=== PATIENT | female | born 1985 | race American Indian/Alaskan Native ===

== ENCOUNTER 2017-08-23 11:53 | Day surgery (SDC) | payer BC, MEDICAID ==
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
[2017-08-23] MEDS ORDERED: LACTATED RINGERS 1,000 ML IV SCH ×2 (13:00→15:00)
[2017-08-23] MEDS ORDERED: ANCEF/STERILE WATER 2 GM/20 ML 2 GM/20 ML SYRINGE IV NR (13:00)
[2017-08-23 13:17] LABS: Basophils % (Auto) 0.3 % (0.0-1.8); Eosinophils # (Auto) 0.1 K/mm3 (0.0-0.4); Eosinophils % (Auto) 0.6 % (0.0-4.3); Hematocrit 35.9 % (30.3-42.9); Hemoglobin 11.7 gm/dl (10.1-14.3); Lymphocytes # (Auto) 1.7 K/mm3 (1.2-5.4); Lymphocytes % (Auto) 20.7 % (13.4-35.0); Mean Corpuscular HGB Conc 33 % (30-34); Mean Corpuscular Hemoglobin 28 pg (28-32); Mean Corpuscular Volume 86 fl (79-97); Monocytes # (Auto) 0.7 K/mm3 (0.0-0.8); Monocytes % (Auto) 8.3 % (0.0-7.3); Platelet Count 348 K/mm3 (140-440); Red Blood Count 4.17 M/mm3 (3.65-5.03); Red Cell Distribution Width 12.6 % (13.2-15.2)
--- NOTE | 2017-08-23 13:18 | Anesthesia Consultation ---
Anesthesia Consult and Med Hx Date of service: 08/23/17 - Airway Anesthetic Teeth Evaluation: Good ROM Head & Neck: Adequate Mental/Hyoid Distance: Adequate Mallampati Class: Class II Intubation Access Assessment: Good - Pulmonary Exam CTA: Yes - Cardiac Exam Cardiac Exam: No Murmur - Pre-Operative Health Status ASA Pre-Surgery Classification: ASA1 Proposed Anesthetic Plan: General
--- NOTE | 2017-08-23 13:41 | Anesthesia Day of Surgery ---
Anesthesia Day of Surgery - Day of Surgery Patient Examined: Yes Patient H&P Reviewed: Yes Patient is NPO: Yes
[2017-08-23] MEDS ORDERED: XYLOCAINE MPF 2% ONE (13:49)
[2017-08-23] MEDS ORDERED: DIPRIVAN 10 MG/ML IV ONE (13:49)
[2017-08-23] MEDS ORDERED: SUBLIMAZE ONE (13:55)
[2017-08-23] MEDS ORDERED: VERSED IV NR (14:00)
[2017-08-23] MEDS ORDERED: PEPCID PO NR (14:00)
[2017-08-23] MEDS ORDERED: NACL 0.9% IR ONE (14:05)
[2017-08-23] MEDS ORDERED: ZOFRAN ONE (14:12)
--- NOTE | 2017-08-23 14:27 | Operative Report ---
Operative Report Operative Report: PREOPERATIVE DIAGNOSIS: 1. Blighted ovum 2. Missed POSTOPERATIVE DIAGNOSIS: Same OPERATIVE PROCEDURE: Dilatation and curettage. SURGEON: Sanjiv Robertson MD ANESTHESIA: Gen. Dill ANESTHESIOLOGIST: Dr. Pollock ESTIMATED BLOOD LOSS: 200 mL's FINDINGS: An 8-10 week size uterus with moderate amounts of products of conception COMPLICATIONS: None COUNTS: Correct x3. PROCEDURE: After the patient was correctly identified, and after general anesthesia was administered, the patient was prepped and draped in the usual sterile fashion and placed in dorsal lithotomy position. First, the bladder was emptied using a straight catheter. Next, a speculum was placed in the vaginal vault and the anterior lip of the cervix was grasped using a single- tooth tenaculum. The uterus was sounded to 10 cm. The cervical os was sequentially dilated, and an 9 mm vaccurette was used to suction blood and products of conception from the uterine cavity. After all the products of conception were removed, the procedure was considered complete. All instruments were removed from the vagina. The patient tolerated the procedure well and was transferred to the recovery room in stable condition.
[2017-08-23] MEDS ORDERED: SUBLIMAZE IV PRN (14:31)
[2017-08-23] MEDS ORDERED: ZOFRAN IV PRN (14:31)
[2017-08-23] MEDS ORDERED: TORADOL IV NR (14:40)
--- NOTE | 2017-08-23 14:54 | Post Anesthesia Evaluation ---
- Post Anesthesia Evaluation Patient Participated: Yes Airway Patent: Yes Stable Respiratory Function: Yes Nausea/Vomiting: No Temp > 96.8F: Yes Pain Manageable: Yes Adequeate Hydration: Yes Anesthesia Complications: No Block Receding Appropriately: Not Applicable Patient on Ventilator: No
[2017-08-23 15:09] VITALS: BP 107/72
[2017-08-23] MEDS ORDERED: PERCOCET 5/325 PO ONE (15:19)
== END 2017-08-23 15:57 | disposition home or self-care (01) ==
LOC: OR 11:53
PROVIDERS: ATTEND Obstetrics & Gynecology
DX: O02.1 Missed abortion (principal)
CPT/HCPCS: 36415; 59820; 85025; 86900; 86901; 88305; J0690; J1885; J2250; J2405; J2704; J3010; J7120

== ENCOUNTER 2020-02-10 15:46 | Emergency (ER) | payer OTHER, MEDICAID ==
[2020-02-10] MEDS ORDERED: ACETAMINOPHEN 500 MG TAB PO ONE (19:23)
[2020-02-10 19:46] LABS: Bilirubin,Urine NEG (Negative); Blood,Urine NEG (Negative); Color,Urine Yellow (Yellow); HCG Qualitative,Urine Negative (Negative); Mucus,Urine FEW /HPF; Protein,Urine <15 mg/dL mg/dL (Negative); Urobilinogen,Urine < 2.0 mg/dL (<2.0)
[2020-02-10] MEDS ORDERED: KETOROLAC 30 MG/1 ML INJ IM ONE (20:19)
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
[2020-02-10 21:28] VITALS: BP 127/86
== END 2020-02-10 21:28 | disposition home or self-care (01) ==
LOC: ED 15:46
DX: M54.5 Low back pain (principal); M62.830 Muscle spasm of back; Z98.890 Other specified postprocedural states; Z79.1 Long term (current) use of non-steroidal anti-inflammatories (NSAID); Z79.899 Other long term (current) drug therapy; V49.49XA Driver injured in collision with other motor vehicles in traffic accident, initial encounter; Y93.89 Activity, other specified; Y92.410 Unspecified street and highway as the place of occurrence of the external cause; Y99.8 Other external cause status
CPT/HCPCS: 72100; 81001; 81025; 96372; 99283; J1885

== ENCOUNTER 2020-11-02 13:29 | Emergency (ER) | payer MEDICAID, OTHER ==
[2020-11-02 13:53] VITALS: BP 165/88
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
[2020-11-02 16:04] LABS: HCG Qualitative,Urine Positive (Negative)
--- NOTE | 2020-11-02 16:24 | Cat Scan Report ---
CT HEAD WITHOUT CONTRAST INDICATION / CLINICAL INFORMATION: Head injury with headache and dizziness x1 week. TECHNIQUE: All CT scans at this location are performed using CT dose reduction for ALARA by means of automated exposure control. COMPARISON: 10/08/2012 FINDINGS: HEMORRHAGE: None. EXTRA-AXIAL SPACES: Normal in size and morphology for the patient's age. VENTRICULAR SYSTEM: Normal in size and morphology for the patient's age. CEREBRAL PARENCHYMA: No significant abnormality. No acute territorial infarct. MIDLINE SHIFT / HERNIATION: None. CEREBELLUM / BRAINSTEM: No significant abnormality. ORBITS: Normal as visualized. SOFT TISSUES: There is a hematoma in the right frontal scalp. SKULL: No significant abnormality. PARANASAL SINUSES / MASTOID AIR CELLS: Normal as visualized. ADDITIONAL FINDINGS: None. IMPRESSION: 1. No acute intracranial abnormality. Signer Name: Georgi Willoughby MD Signed: 11/02/2020 4:20 PM Workstation Name: [id number]
--- NOTE | 2020-11-06 14:21 | Electrocardiograph Report ---
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
== END 2020-11-02 17:06 | disposition home or self-care (01) ==
LOC: ED 13:29
DX: S09.90XA Unspecified injury of head, initial encounter (principal); S00.03XA Contusion of scalp, initial encounter; Z98.890 Other specified postprocedural states; W18.30XA Fall on same level, unspecified, initial encounter; Y93.89 Activity, other specified; Y92.89 Other specified places as the place of occurrence of the external cause; Y99.8 Other external cause status
CPT/HCPCS: 70450; 81025; 93005

== ENCOUNTER 2020-11-13 16:46 | Emergency (ER) | payer OTHER ==
[2020-11-13 18:20] VITALS: BP 148/79
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
--- NOTE | 2020-11-13 20:15 | Emergency Department Report ---
ED Lower Extremity HPI - General Chief Complaint: Extremity Injury, Lower Stated Complaint: LEFT ANKLE PAIN. PT FELL Time Seen by Provider: 11/13/20 18:21 Source: patient Mode of arrival: Ambulatory Limitations: No Limitations - History of Present Illness Initial Comments: This is a 35-year-old female nontoxic, well nourished in appearance, no acute signs of distress presents to the ED with c/o of left ankle and foot pain 1 day. Patient stated that she had a trip and fall to the foot/ankle area. Patient denies any other injuries or trauma. Patient denies any numbness, tingling, fever, chills, nausea, vomiting, chest pain, shortness of breath, headache, stiff neck. Patient denies any joint swelling or joint redness. Patient denies decreased range of motion. Patient stated has decreased gait due to pain. Patient denies any allergies or significant past medical history. MD Complaint: ankle injury -: days(s) Injury: Ankle: Left, Foot: Left Place: street/outdoors Severity: mild Severity scale (0 -10): 8 Improves With: immobilization Worsens With: weight bearing, movement, palpation Context: fall Associated Symptoms: swelling, able to partially bear weight. denies: snap/pop sensation, numbness, tingling, unable to bear weight - Related Data Previous Rx's Medication Instructions Recorded Last Taken Type Doxycycline Hyclate [Doxycycline 100 mg PO Q12HR #14 tab 08/23/17 Unknown Rx Hyclate TAB] Methylergonovine [Methergine] 0.2 mg PO Q8HR #6 tablet 08/23/17 Unknown Rx Ibuprofen [Motrin 800 MG tab] 800 mg PO Q8HR PRN #30 tablet 02/10/20 Unknown Rx Naproxen 500 mg PO Q12H PRN #12 tablet 11/13/20 Unknown Rx Allergies Allergy/AdvReac Type Severity Reaction Status Date / Time No Known Allergies Allergy Verified 04/30/16 14:24 ED Review of Systems ROS: Stated complaint: LEFT ANKLE PAIN. PT FELL Other details as noted in HPI Comment: All other systems reviewed and negative Constitutional: denies: chills, fever Eyes: denies: eye pain, eye discharge, vision change ENT: denies: ear pain, throat pain Respiratory: denies: cough, shortness of breath, wheezing Cardiovascular: denies: chest pain, palpitations Endocrine: no symptoms reported Gastrointestinal: denies: abdominal pain, nausea, diarrhea Genitourinary: denies: urgency, dysuria, discharge Musculoskeletal: denies: back pain, joint swelling, arthralgia Skin: denies: rash, lesions Neurological: denies: headache, weakness, paresthesias Psychiatric: denies: anxiety, depression Hematological/Lymphatic: denies: easy bleeding, easy bruising ED Past Medical Hx - Past Medical History Previous Medical History?: No - Surgical History Past Surgical History?: Yes Additional Surgical History: hernia repair, x 4 - Social History Smoking Status: Never Smoker - Medications Home Medications: Home Medications Medication Instructions Recorded Confirmed Last Taken Type Doxycycline Hyclate [Doxycycline 100 mg PO Q12HR #14 tab 08/23/17 Unknown Rx Hyclate TAB] Methylergonovine [Methergine] 0.2 mg PO Q8HR #6 tablet 08/23/17 Unknown Rx Ibuprofen [Motrin 800 MG tab] 800 mg PO Q8HR PRN #30 tablet 02/10/20 Unknown Rx Naproxen 500 mg PO Q12H PRN #12 tablet 11/13/20 Unknown Rx ED Physical Exam - General Limitations: No Limitations General appearance: alert, in no apparent distress - Head Head exam: Present: atraumatic, normocephalic - Eye Eye exam: Present: normal appearance - Neck Neck exam: Present: normal inspection, full ROM. Absent: lymphadenopathy - Respiratory Respiratory exam: Absent: respiratory distress - Cardiovascular Cardiovascular Exam: Present: regular rate - Extremities Exam Extremities exam: Present: normal inspection, full ROM, tenderness, normal capillary refill. Absent: pedal edema, joint swelling, calf tenderness - Expanded Lower Extremity Exam Left Hip exam: Present: normal inspection, full ROM. Absent: tenderness, swelling Upper Leg exam: Present: normal inspection, full ROM. Absent: tenderness, swelling Knee exam: Present: normal inspection, full ROM. Absent: tenderness, swelling Lower Leg exam: Present: normal inspection, full ROM. Absent: tenderness, swelling Ankle exam: Present: normal inspection, full ROM, tenderness, swelling. Absent: abrasion, laceration, deformity, crepidus, dislocation, erythema Foot/Toe exam: Present: normal inspection, full ROM, tenderness. Absent: swelling, abrasion, laceration, ecchymosis, deformity, crepidus, dislocation, erythema, amputation, puncture wound, foreign body, calcaneal tenderness, tenderness at base of 5th metatarsal, nail avulsion, subungual hematoma Neuro vascular tendon exam: Present: no vascular compromise Gait: Positive: observed and limited by pain 1 - pain here and swelling 1 - pain here - Back Exam Back exam: Present: normal inspection, full ROM. Absent: tenderness, CVA tenderness (R), CVA tenderness (L), muscle spasm, paraspinal tenderness, vertebral tenderness, rash noted - Neurological Exam Neurological exam: Present: alert, oriented X3 - Psychiatric Psychiatric exam: Present: normal affect, normal mood - Skin Skin exam: Present: warm, dry, intact, normal color. Absent: rash - Other Other exam information: Negative Del Rosario test to left side. ED Course Vital Signs 11/13/20 18:17 Temperature 99.3 F Pulse Rate 81 Respiratory 18 Rate Blood Pressure 148/79 [Right] O2 Sat by Pulse 99 Oximetry - Reevaluation(s) Reevaluation #1: 11/13/20 20:15 Patient is speaking in full sentences with no signs of distress noted. ED Lower Extremity MDM - Radiology Data [facility] [address] [place] [address] XRay Report Signed Patient: NANCY ROJAS MR#: [id number] : 1985 Acct:[id number] Age/Sex: 35 / F ADM Date: 11/13/20 Loc: ED Attending Dr: Ordering Physician: LACHO CHEW NP Date of Service: 11/13/20 Procedure(s): XR foot 3+V LT Accession Number(s): [id number] cc: LACHO CHEW NP Fluoro Time In Minutes: EXAMINATION: Left foot radiograph, 3 views, 11/13/2020 CLINICAL INFORMATION: Left ankle pain after trauma. COMPARISON: None. FINDINGS: There is no evidence of acute fracture of the left foot. No focal soft tissue swelling is identified. No significant bony degenerative changes are noted. Signer Name: Isabella Dempsey MD Signed: 11/13/2020 7:28 PM Workstation Name: [id number] Transcribed By: NARINDER Dictated By: Isabella Dempsey MD Electronically Authenticated By: Isabella Dempsey MD Signed Date/Time: 11/13/201927 DD/ 26 TD/TT: [facility] [address] [place] [address] XRay Report Signed Patient: NANCY ROJAS MR#: [id number] : 1985 Acct:[id number] Age/Sex: 35 / F ADM Date: 11/13/20 Loc: ED Attending Dr: Ordering Physician: LACHO CHEW NP Date of Service: 11/13/20 Procedure(s): XR ankle 3+V LT Accession Number(s): [id number] cc: LACHO CHEW NP Fluoro Time In Minutes: EXAMINATION: Left ankle radiograph, 3 views, 11/13/2020 CLINICAL INFORMATION: Left ankle pain after trauma. Fall. COMPARISON: None. FINDINGS: There is no evidence of acute fracture or dislocation of the left ankle. No focal soft tissue swelling is visualized. Signer Name: Isabella Dempsey MD Signed: 11/13/2020 7:27 PM Workstation Name: [id number] Transcribed By: NARINDER Dictated By: Isabella Dempsey MD Electronically Authenticated By: Isabella Dempsey MD Signed Date/Time: 11/13/201926 DD/ 25 TD/TT: - Medical Decision Making This is a 35-year-old female that presents with left ankle and foot strain. Patient is stable and was examined by me. I referred patient to an orthopedic doctor for further evaluation for possible MRI. X-ray has been obtained and dictated by the radiologist. Patient is notified of the x-ray report with noted by the patient. Patient received ankle stirrup. Patient does have crutches present which she came in with. Patient was instructed to RICE therapy. P patient discharged with naproxen. At time of discharge, the patient does not seem toxic or ill in appearance. No acute signs of distress noted. Patient agrees to discharge treatment plan of care. No further questions noted by the patient. Critical care attestation.: If time is entered above; I have spent that time in minutes in the direct care of this critically ill patient, excluding procedure time. ED Disposition Clinical Impression: Left ankle sprain Qualifiers: Encounter type: initial encounter Involved ligament of ankle: unspecified ligament Qualified Code(s): S93.402A - Sprain of unspecified ligament of left ankle, initial encounter Strain of foot, left Qualifiers: Encounter type: initial encounter Qualified Code(s): S96.912A - Strain of unspecified muscle and tendon at ankle and foot level, left foot, initial encounter Fall Qualifiers: Encounter type: initial encounter Qualified Code(s): W19.XXXA - Unspecified fall, initial encounter Disposition: TO HOME OR SELFCARE Is pt being admited?: No Does the pt Need Aspirin: No Condition: Stable Instructions: RICE Therapy for Routine Care of Injuries, [id number] Additional Instructions: Follow-up with a orthopedic doctor in 3-5 days or if symptoms worsen and continue return to emergency room as soon as possible. No physical activity that extremity until cleared by orthopedic doctor Prescriptions: Naproxen 500 mg PO Q12H PRN #12 tablet PRN Reason: Pain , Severe (7-10) Referrals: PRIMARY CARE, [Referring] - 3-5 Days DANI GENTILE MD [Staff Physician] - 3-5 Days Forms: Work/School Release Form(ED) Time of Disposition: 20:18
== END 2020-11-13 21:20 | disposition home or self-care (01) ==
LOC: ED 16:46
DX: S93.402A Sprain of unspecified ligament of left ankle, initial encounter (principal); S96.912A Strain of unspecified muscle and tendon at ankle and foot level, left foot, initial encounter; Z98.890 Other specified postprocedural states; Z79.899 Other long term (current) drug therapy; W01.0XXA Fall on same level from slipping, tripping and stumbling without subsequent striking against object, initial encounter; Y93.89 Activity, other specified; Y92.89 Other specified places as the place of occurrence of the external cause; Y99.8 Other external cause status

== ENCOUNTER 2020-12-08 13:08 | Emergency (ER) | payer OTHER ==
[2020-12-08] MEDS ORDERED: ACETAMINOPHEN 325 MG TAB PO ONE (15:36)
[2020-12-08] MEDS ORDERED: amLODIPine 5 MG TAB PO ONE (15:36)
[2020-12-08 17:03] LABS: Basophils # (Auto) 0.1 K/mm3 (0.0-0.1); Basophils % (Auto) 0.9 % (0.0-1.8); Eosinophils # (Auto) 0.1 K/mm3 (0.0-0.4); Eosinophils % (Auto) 1.8 % (0.0-4.3); Hematocrit 37.8 % (30.3-42.9); Hemoglobin 12.4 gm/dl (10.1-14.3); Lymphocytes # (Auto) 1.7 K/mm3 (1.2-5.4); Lymphocytes % (Auto) 26.8 % (13.4-35.0); Mean Corpuscular HGB Conc 33 % (30-34); Mean Corpuscular Volume 88 fl (79-97); Monocytes # (Auto) 0.4 K/mm3 (0.0-0.8); Monocytes % (Auto) 7.2 % (0.0-7.3); Platelet Count 434 K/mm3 (140-440); Red Blood Count 4.29 M/mm3 (3.65-5.03)
[2020-12-08 17:09] LABS: Alanine Aminotransferase 23 units/L (7-56); BUN/Creatinine Ratio 15; Blood Urea Nitrogen 12 mg/dL (7-17); Calcium 8.8 mg/dL (8.4-10.2); Hemolysis Index 3
[2020-12-08 17:13] LABS: INR 0.95 (0.87-1.13)
--- NOTE | 2020-12-08 17:15 | Cat Scan Report ---
CT HEAD WITHOUT CONTRAST INDICATION / CLINICAL INFORMATION: neuro deficits <6hrs or sx present upon awakening. TECHNIQUE: All CT scans at this location are performed using CT dose reduction for ALARA by means of automated e xposure control. COMPARISON: None available. FINDINGS: HEMORRHAGE: No evidence of intracranial hemorrhage or extra-axial fluid collection. EXTRA-AXIAL SPACES: Cortical sulci, sylvian fissures and basilar cisterns have an unremarkable appear ance. VENTRICULAR SYSTEM: The third and lateral ventricles are of normal size and configuration. CEREBRAL PARENCHYMA: No areas of abnormal brain parenchymal attenuation are identified. There is no i ndication of recent infarction. MIDLINE SHIFT OR HERNIATION: There is no mass effect. CEREBELLUM / BRAINSTEM: Brainstem and cerebellum have an unremarkable appearance. MIDLINE STRUCTURES:No abnormalities of the pituitary gland or pineal region are identified. INTRACRANIAL VESSELS:No abnormalities are identified on this noncontrast head CT. ORBITS: visualized portions of the orbits have an unremarkable appearance. SOFT TISSUES of HEAD: No significant abnormality. CALVARIUM: Evaluation of bone windows reveals no abnormalities. PARANASAL SINUSES / MASTOID AIR CELLS: Visualized portions of the paranasal sinuses are free from inf lammatory mucosal disease. Mastoid air cells are normally pneumatized. IMPRESSION: 1. Normal head CT without contrast Signer Name: Josh Soto MD Signed: 12/08/2020 5:10 PM Workstation Name: [id number]
[2020-12-08] MEDS ORDERED: ONDANSETRON 4 MG/2 ML INJ IM ONE (23:29)
[2020-12-08] MEDS ORDERED: MORPHINE 4 MG/1 ML INJ IM ONE (23:29)
--- NOTE | 2020-12-08 23:33 | Emergency Department Report ---
<KATIE PULIDO - Last Filed: 12/08/20 23:30> ED General Adult HPI - General Chief complaint: High BP Stated complaint: BP HIGH/(L)HAND NUMBNES/ DIZZINESS/HEADACHE/X2DAYS Time Seen by Provider: 12/08/20 23:23 Source: patient Mode of arrival: Ambulatory Limitations: No Limitations - History of Present Illness Initial comments: Patient is 35 years old female with recent approximately 2 weeks ago. Patient stated that baby was 6 weeks gestation. Patient presented to the ER complaining of headache and found that her blood pressure is significantly elevated. Patient denied any history of high blood pressure before however when I looked in her previous record patient did have history of elevated blood pressure. Patient denied any weakness, numbness or tingling sensation. No blurry vision. Patient also denied any chest pain or shortness of breath. Severity scale (0 -10): 10 - Related Data Previous Rx's Medication Instructions Recorded Last Taken Type Doxycycline Hyclate [Doxycycline 100 mg PO Q12HR #14 tab 08/23/17 Unknown Rx Hyclate TAB] Methylergonovine [Methergine] 0.2 mg PO Q8HR #6 tablet 08/23/17 Unknown Rx Ibuprofen [Motrin 800 MG tab] 800 mg PO Q8HR PRN #30 tablet 02/10/20 Unknown Rx Naproxen 500 mg PO Q12H PRN #12 tablet 11/13/20 Unknown Rx amLODIPine [Norvasc] 5 mg PO DAILY #30 tab 12/08/20 Unknown Rx Ondansetron [Zofran Odt] 4 mg PO Q8HR PRN #10 tab.rapdis 12/09/20 Unknown Rx traMADoL [Ultram 50 MG tab] 50 mg PO Q4HR PRN #10 tablet 12/09/20 Unknown Rx Allergies Allergy/AdvReac Type Severity Reaction Status Date / Time No Known Allergies Allergy Verified 04/30/16 14:24 ED Review of Systems Comment: All other systems reviewed and negative Constitutional: denies: chills, fever Respiratory: denies: cough, shortness of breath, SOB with exertion, SOB at rest Cardiovascular: denies: chest pain, palpitations Gastrointestinal: denies: abdominal pain, nausea, vomiting, diarrhea, constipation, hematemesis, melena, hematochezia Musculoskeletal: denies: back pain Neurological: headache. denies: weakness, numbness, paresthesias, confusion, abnormal gait ED Past Medical Hx - Past Medical History Previous Medical History?: Yes Additional medical history: Vaginal delivery x 3, Umbilical hernia repair 2010 - Surgical History Past Surgical History?: Yes Additional Surgical History: hernia repair, x 4 - Social History Smoking Status: Never Smoker Substance Use Type: Alcohol - Medications Home Medications: Home Medications Medication Instructions Recorded Confirmed Last Taken Type Doxycycline Hyclate [Doxycycline 100 mg PO Q12HR #14 tab 08/23/17 Unknown Rx Hyclate TAB] Methylergonovine [Methergine] 0.2 mg PO Q8HR #6 tablet 08/23/17 Unknown Rx Ibuprofen [Motrin 800 MG tab] 800 mg PO Q8HR PRN #30 tablet 02/10/20 Unknown Rx Naproxen 500 mg PO Q12H PRN #12 tablet 11/13/20 Unknown Rx amLODIPine [Norvasc] 5 mg PO DAILY #30 tab 12/08/20 Unknown Rx Ondansetron [Zofran Odt] 4 mg PO Q8HR PRN #10 tab.rapdis 12/09/20 Unknown Rx traMADoL [Ultram 50 MG tab] 50 mg PO Q4HR PRN #10 tablet 12/09/20 Unknown Rx ED Physical Exam - General Limitations: No Limitations General appearance: alert, in no apparent distress - Head Head exam: Present: atraumatic, normocephalic, normal inspection - Eye Eye exam: Present: normal appearance, PERRL - ENT ENT exam: Present: normal exam, normal orophraynx, mucous membranes moist - Neck Neck exam: Present: normal inspection, full ROM. Absent: tenderness, meningismus - Respiratory Respiratory exam: Present: normal lung sounds bilaterally - Cardiovascular Cardiovascular Exam: Present: regular rate, normal rhythm, normal heart sounds - GI/Abdominal GI/Abdominal exam: Present: soft, normal bowel sounds. Absent: distended, tenderness, guarding, rebound, rigid, organomegaly, mass, bruit, pulsatile mass, hernia - Extremities Exam Extremities exam: Present: normal inspection, full ROM, normal capillary refill. Absent: tenderness - Back Exam Back exam: Present: normal inspection, full ROM. Absent: CVA tenderness (R), CVA tenderness (L) - Neurological Exam Neurological exam: Present: alert, oriented X3, CN II-XII intact, normal gait, reflexes normal. Absent: motor sensory deficit - Psychiatric Psychiatric exam: Present: normal mood - Skin Skin exam: Present: warm, intact, normal color ED Medical Decision Making - Lab Data Result diagrams: 12/08/20 16:13 12/08/20 16:13 - Radiology Data Radiology results: report reviewed - Medical Decision Making Patient is 35 years old female with recent approximately 2 weeks ago. Patient stated that baby was 6 weeks gestation. Patient presented to the ER complaining of headache and found that her blood pressure is significantly elevated. Patient denied any history of high blood pressure before however when I looked in her previous record patient did have history of elevated blood pressure. Patient denied any weakness, numbness or tingling sensation. No blur ry vision. Patient also denied any chest pain or shortness of breath. Labs reviewed and is unremarkable. CT brain is negative for acute finding. Patient received morphine, Zofran and clonidine. Patient stated that she is feeling much better. Patient given prescription for amlodipine and advised to follow-up with her primary care physician in the next 2 to 3 days and to return to the ER if she develop any new symptoms. ED Disposition Clinical Impression: Headache, Malignant hypertension Disposition: DC- TO HOME OR SELFCARE Is pt being admited?: No Condition: Stable Instructions: Hypertension, Adult, Hypertension (ED) Prescriptions: amLODIPine [Norvasc] 5 mg PO DAILY #30 tab traMADoL [Ultram 50 MG tab] 50 mg PO Q4HR PRN #10 tablet PRN Reason: Pain Ondansetron [Zofran Odt] 4 mg PO Q8HR PRN #10 tab.rapdis PRN Reason: Nausea And Vomiting Referrals: PRIMARY CARE, [Primary Care Provider] - 3-5 Days <GOLDIE ECHEVERRIA - Last Filed: 12/09/20 13:55> ED Review of Systems ROS: Stated complaint: BP HIGH/(L)HAND NUMBNES/ DIZZINESS/HEADACHE/X2DAYS Other details as noted in HPI ED Course Vital Signs 12/08/20 12/08/20 12/08/20 15:16 15:40 21:24 Temperature 99.2 F Pulse Rate 95 H 95 H 116 H Respiratory 18 18 Rate Blood Pressure 192/110 191/110 Blood Pressure 177/97 [Right] O2 Sat by Pulse 100 100 Oximetry 12/08/20 12/08/20 12/09/20 23:05 23:45 00:30 Temperature Pulse Rate 98 H 96 H 80 Respiratory 18 18 Rate Blood Pressure 162/55 Blood Pressure 179/95 161/98 [Right] O2 Sat by Pulse 100 99 Oximetry 12/09/20 12/09/20 12/09/20 01:45 02:00 03:30 Temperature Pulse Rate 91 H 68 Respiratory 18 18 Rate Blood Pressure Blood Pressure 140/92 114/74 [Right] O2 Sat by Pulse 98 98 97 Oximetry ED Medical Decision Making - Lab Data Result diagrams: 12/08/20 16:13 12/08/20 16:13 - Medical Decision Making I received call from pharmacy that the pharmacist required a PATTI number to fill the Ultram prescription. I provided my name and PATTI number so that the prescription may be filled. Critical care attestation.: If time is entered above; I have spent that time in minutes in the direct care of this critically ill patient, excluding procedure time.
[2020-12-08] MEDS ORDERED: cloNIDine 0.1 MG TAB PO ONE (23:34)
[2020-12-09] MEDS ORDERED: KETOROLAC 60 MG/2 ML INJ IM ONE (02:01)
[2020-12-09 06:30] VITALS: BP 114/74
--- NOTE | 2020-12-09 10:39 | Electrocardiograph Report ---
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
== END 2020-12-09 03:35 | disposition home or self-care (01) ==
LOC: ED 13:08
DX: R51.9 Headache, unspecified (principal); I10 Essential (primary) hypertension
CPT/HCPCS: 36415; 70450; 80053; 84484; 85025; 85610; 85670; 85730; 93005; 96372; 99284; J1885; J2270; J2405

== ENCOUNTER 2021-04-27 12:49 | Emergency (ER) | payer OTHER ==
[2021-04-27] MEDS ORDERED: ACETAMINOPHEN 500 MG TAB PO ONE (14:01)
[2021-04-27 14:44] LABS: Basophils % (Auto) 0.2 % (0.0-1.8); Eosinophils % (Auto) 0.5 % (0.0-4.3); Hematocrit 36.9 % (30.3-42.9); Hemoglobin 11.8 gm/dl (10.1-14.3); Lymphocytes % (Auto) 13.9 % (13.4-35.0); Mean Corpuscular HGB Conc 32 % (30-34); Mean Corpuscular Volume 86 fl (79-97); Monocytes # (Auto) 0.6 K/mm3 (0.0-0.8); Monocytes % (Auto) 8.1 % (0.0-7.3); Platelet Count 359 K/mm3 (140-440); Red Blood Count 4.31 M/mm3 (3.65-5.03); Red Cell Distribution Width 13.2 % (13.2-15.2)
--- NOTE | 2021-04-27 14:50 | Emergency Department Report ---
<MIRI VAIL - Last Filed: 04/27/21 16:49> ED Female HPI - General Chief complaint: Abdominal Pain Stated complaint: WITH ABD AND BACK PAIN Source: patient Mode of arrival: Ambulatory Limitations: No Limitations - History of Present Illness Initial comments: 35-year-old -[place] female presents to the emergency room stating she is having abdominal cramping some dizziness some nausea. Patient states that she was seen here in 1 month similar to be scheduled for a tubal ligation when it was noted that patient was at the time. Patient is 17 para 3 and 14 abortions. Patient states that she has a history of hypertension and is currently on losartan. States that she has not followed up or [facility] who was scheduled to do her tubal ligation. MD Complaint: pelvic pain - Related Data Home Medications Medication Instructions Recorded Confirmed Last Taken One Daily Tablet 1 tab PO DAILY 04/14/21 04/14/21 Unknown Previous Rx's Medication Instructions Recorded Last Taken Type amLODIPine [Norvasc] 5 mg PO DAILY #30 tab 12/08/20 Unknown Rx cephALEXin [Keflex] 500 mg PO BID 7 Days #14 cap 04/27/21 Unknown Rx Allergies Allergy/AdvReac Type Severity Reaction Status Date / Time No Known Allergies Allergy Verified 04/30/16 14:24 ED Past Medical Hx - Past Medical History Hx Hypertension: Yes Hx GERD: No Hx Sickle Cell Disease: Yes (TRAIT) Hx Headaches / Migraines: Yes Hx Tuberculosis: No Hx HIV: No Additional medical history: Vaginal delivery x 3, Umbilical hernia repair 2009 - Surgical History Additional Surgical History: hernia repair, x 4 - Social History Smoking Status: Never Smoker - Medications Home Medications: Home Medications Medication Instructions Recorded Confirmed Last Taken Type amLODIPine [Norvasc] 5 mg PO DAILY #30 tab 12/08/20 Unknown Rx One Daily Tablet 1 tab PO DAILY 04/14/21 04/14/21 Unknown History cephALEXin [Keflex] 500 mg PO BID 7 Days #14 cap 04/27/21 Unknown Rx ED Physical Exam - General Limitations: No Limitations General appearance: alert, in no apparent distress - Head Head exam: Present: atraumatic, normocephalic - Eye Eye exam: Present: normal appearance - ENT ENT exam: Present: mucous membranes moist - Neck Neck exam: Present: normal inspection - Respiratory Respiratory exam: Present: normal lung sounds bilaterally. Absent: respiratory distress - Cardiovascular Cardiovascular Exam: Present: regular rate, normal rhythm. Absent: systolic murmur, diastolic murmur, rubs, gallop - GI/Abdominal GI/Abdominal exam: Present: soft, normal bowel sounds - Extremities Exam Extremities exam: Present: normal inspection - Back Exam Back exam: Present: normal inspection - Neurological Exam Neurological exam: Present: alert, oriented X3, normal gait - Psychiatric Psychiatric exam: Present: normal affect, normal mood - Skin Skin exam: Present: warm, dry, intact, normal color. Absent: rash ED Medical Decision Making - Lab Data Result diagrams: 04/27/21 14:09 04/27/21 14:09 - Medical Decision Making 35-year-old -[place] female presents to the emergency room stating she is having abdominal cramping some dizziness some nausea. Patient states that she was seen here in 1 month similar to be scheduled for a tubal ligation when it was noted that patient was at the time. Patient is 17 para 3 and 14 abortions. Patient states that she has a history of hypertension and i s currently on losartan. States that she has not followed up or [facility] who was scheduled to do her tubal ligation. ED Disposition Clinical Impression: Abdominal pain during Qualifiers: Trimester: first trimester Qualified Code(s): O26.891 - Other specified related conditions, first trimester Disposition: 01 HOME / SELF CARE / HOMELESS Condition: Stable Instructions: Abdominal Pain During , [id number], Abdominal Pain (ED) Additional Instructions: May take Tylenol as needed for any pain. Increase your water intake. Take a vitamin [id number]. Follow-up with your BODY COMPONENT ENGINEER. Return to emergency room for any new or worsening symptoms. Prescriptions: cephALEXin [Keflex] 500 mg PO BID 7 Days #14 cap Referrals: PRIMARY CAREMD [Primary Care Provider] - 3-5 Days TABATHA GONZALEZ MD [Staff Physician] - 3-5 Days Print Language: CROATIAN <CORRY BLACKWOOD - Last Filed: 04/27/21 21:15> ED Review of Systems ROS: Stated complaint: WITH ABD AND BACK PAIN Other details as noted in HPI ED Course Vital Signs 04/27/21 04/27/21 04/27/21 12:57 14:18 17:51 Temperature 98.9 F Pulse Rate 85 76 Respiratory 20 16 14 Rate Blood Pressure 123/80 118/78 [Right] O2 Sat by Pulse 100 100 Oximetry ED Medical Decision Making - Lab Data Result diagrams: 04/27/21 14:09 04/27/21 14:09 Lab Results 04/27/21 04/27/21 04/27/21 Range/Units 14:09 14:09 14:09 WBC 6.9 (4.5-11.0) K/mm3 RBC 4.31 (3.65-5.03) M/mm3 Hgb 11.8 (10.1-14.3) gm/dl Hct 36.9 (30.3-42.9) % MCV 86 (79-97) fl MCH 27 L (28-32) pg MCHC 32 (30-34) % RDW 13.2 (13.2-15.2) % Plt Count 359 (140-440) K/mm3 Lymph % (Auto) 13.9 (13.4-35.0) % Leon % (Auto) 8.1 H (0.0-7.3) % Eos % (Auto) 0.5 (0.0-4.3) % Baso % (Auto) 0.2 (0.0-1.8) % Lymph # (Auto) 1.0 L (1.2-5.4) K/mm3 Leon # (Auto) 0.6 (0.0-0.8) K/mm3 Eos # (Auto) 0.0 (0.0-0.4) K/mm3 Baso # (Auto) 0.0 (0.0-0.1) K/mm3 Seg Neutrophils % 77.3 H (40.0-70.0) % Seg Neutrophils # 5.3 (1.8-7.7) K/mm3 Sodium 135 L (137-145) mmol/L Potassium 3.9 (3.6-5.0) mmol/L Chloride 99.1 (98-107) mmol/L Carbon Dioxide 25 (22-30) mmol/L Anion Gap 15 mmol/L BUN 11 (7-17) mg/dL Creatinine 0.6 (0.6-1.2) mg/dL Estimated GFR > 60 ml/min BUN/Creatinine Ratio 18 % Glucose 80 (65-100) mg/dL Calcium 9.4 (8.4-10.2) mg/dL Total Bilirubin 0.50 (0.1-1.2) mg/dL AST 13 (5-40) units/L ALT 16 (7-56) units/L Alkaline Phosphatase 54 (35-129) units/L Total Protein 7.8 (6.3-8.2) g/dL Albumin 3.9 (3.9-5) g/dL Albumin/Globulin Ratio 1.0 % HCG, Quant 12241 H (0-4) mIU/mL Urine Color (Yellow) Urine Turbidity (Clear) Urine pH (5.0-7.0) Ur Specific [place] (1.003-1.030) Urine Protein (Negative) mg/dL Urine Glucose (UA) (Negative) mg/dL Urine Ketones (Negative) mg/dL Urine Blood (Negative) Urine Nitrite (Negative) Urine Bilirubin (Negative) Urine Urobilinogen (<2.0) mg/dL Ur Leukocyte Esterase (Negative) Urine WBC (Auto) (0.0-6.0) /HPF Urine RBC (Auto) (0.0-6.0) /HPF U Epithel Cells (Auto) (0-13.0) /HPF Urine Bacteria (Auto) (Negative) /HPF Urine Mucus /HPF 04/27/21 Range/Units 14:44 WBC (4.5-11.0) K/mm3 RBC (3.65-5.03) M/mm3 Hgb (10.1-14.3) gm/dl Hct (30.3-42.9) % MCV (79-97) fl MCH (28-32) pg MCHC (30-34) % RDW (13.2-15.2) % Plt Count (140-440) K/mm3 Lymph % (Auto) (13.4-35.0) % Leon % (Auto) (0.0-7.3) % Eos % (Auto) (0.0-4.3) % Baso % (Auto) (0.0-1.8) % Lymph # (Auto) (1.2-5.4) K/mm3 Leon # (Auto) (0.0-0.8) K/mm3 Eos # (Auto) (0.0-0.4) K/mm3 Baso # (Auto) (0.0-0.1) K/mm3 Seg Neutrophils % (40.0-70.0) % Seg Neutrophils # (1.8-7.7) K/mm3 Sodium (137-145) mmol/L Potassium (3.6-5.0) mmol/L Chloride (98-107) mmol/L Carbon Dioxide (22-30) mmol/L Anion Gap mmol/L BUN (7-17) mg/dL Creatinine (0.6-1.2) mg/dL Estimated GFR ml/min BUN/Creatinine Ratio % Glucose (65-100) mg/dL Calcium (8.4-10.2) mg/dL Total Bilirubin (0.1-1.2) mg/dL AST (5-40) units/L ALT (7-56) units/L Alkaline Phosphatase (35-129) units/L Total Protein (6.3-8.2) g/dL Albumin (3.9-5) g/dL Albumin/Globulin Ratio % HCG, Quant (0-4) mIU/mL Urine Color Yellow (Yellow) Urine Turbidity Clear (Clear) Urine pH 6.0 (5.0-7.0) Ur Specific [place] 1.013 (1.003-1.030) Urine Protein <15 mg/dl (Negative) mg/dL Urine Glucose (UA) Neg (Negative) mg/dL Urine Ketones Neg (Negative) mg/dL Urine Blood Neg (Negative) Urine Nitrite Neg (Negative) Urine Bilirubin Neg (Negative) Urine Urobilinogen < 2.0 (<2.0) mg/dL Ur Leukocyte Esterase Neg (Negative) Urine WBC (Auto) 1.0 (0.0-6.0) /HPF Urine RBC (Auto) < 1.0 (0.0-6.0) /HPF U Epithel Cells (Auto) 2.0 (0-13.0) /HPF Urine Bacteria (Auto) 2+ (Negative) /HPF Urine Mucus Few /HPF - Radiology Data Radiology results: report reviewed Ordering Physician: FLORENTINO GONZALEZ Date of Service: 04/27/21 Procedure(s): US OB <= 14 weeks fetus Accession Number(s): [id number] cc: FLORENTINO GONZALEZ TRANSABDOMINAL AND TRANSVAGINAL OB PELVIC ULTRASOUND INDICATION / CLINICAL INFORMATION: Pelvic pain/cramping. COMPARISON: None available. FINDINGS: TRANSABDOMINAL: The uterus measures 12.3 x 5.9 x 5.4 cm. There is an intrauterine fluid collection. Neither ovary is identified. The urinary bladder is unremarkable. TRANSVAGINAL: There is an intrauterine gestational sac with a pole and yolk sac. The estimated gestational age is 6 weeks 1 day by crown-rump length. The heart rate is 166 bpm. The right ovary measures 2.6 x 1.7 x 2.5 cm and the left ovary 3.4 x 2.0 x 2.8 cm. There is a 1.7 cm corpus luteal cyst in the left ovary. There is normal blood flow to both ovaries on Doppler exam. No free fluid is seen. IMPRESSION: Single viable 6 week 1 day intrauterine without complication. Signer Name: Raul Wallace MD Signed: 04/27/2021 5:19 PM Workstation Name: [id number] Transcribed By: RT Dictated By: Raul Wallace MD Electronically Authenticated By: Raul Wallace MD Signed Date/Time: 04/27/211718 DD/ 14 TD/TT: - Medical Decision Making Signed out by Clemencia Mcrae PA-C pending ultrasound result Patient states that her pain improved after Tylenol administration. Labs are stable. UA shows 2+ bacteria, given that patient is will cover for UTI. OB ultrasound IMPRESSION: Single viable 6 week 1 day intrauterine without complication. Discussed all findings with patient and the importance of OB follow-up. Advised patient May take Tylenol as needed for any pain. Increase your water intake. Take a vitamin [id number]. Follow-up with your BODY COMPONENT ENGINEER. Return to emergency room for any new or worsening symptoms. Critical care attestation.: If time is entered above; I have spent that time in minutes in the direct care of this critically ill patient, excluding procedure time. ED Disposition Is pt being admited?: No Does the pt Need Aspirin: No Time of Disposition: 17:36
[2021-04-27 15:07] LABS: Alanine Aminotransferase 16 units/L (7-56); Albumin 3.9 g/dL (3.9-5); Blood Urea Nitrogen 11 mg/dL (7-17); Calcium 9.4 mg/dL (8.4-10.2); Hemolysis Index 0
[2021-04-27 15:08] LABS: BUN/Creatinine Ratio 18
[2021-04-27 16:31] LABS: Bacteria,Urine 2+ /HPF (Negative); Bilirubin,Urine NEG (Negative); Blood,Urine NEG (Negative); Color,Urine Yellow (Yellow); Mucus,Urine FEW /HPF; Protein,Urine <15 mg/dL mg/dL (Negative); RBC,Urine < 1.0 /HPF (0.0-6.0); Urobilinogen,Urine < 2.0 mg/dL (<2.0)
--- NOTE | 2021-04-27 17:24 | Ultrasound Report ---
TRANSABDOMINAL AND TRANSVAGINAL OB PELVIC ULTRASOUND INDICATION / CLINICAL INFORMATION: Pelvic pain/cramping. COMPARISON: None available. FINDINGS: TRANSABDOMINAL: The uterus measures 12.3 x 5.9 x 5.4 cm. There is an intrauterine fluid collection. N either ovary is identified. The urinary bladder is unremarkable. TRANSVAGINAL: There is an intrauterine gestational sac with a pole and yolk sac. The estimated gestational age is 6 weeks 1 day by crown-rump length. The heart rate is 166 bpm. The right ovary measures 2.6 x 1.7 x 2.5 cm and the left ovary 3.4 x 2.0 x 2.8 cm. There is a 1.7 cm corpus luteal cyst in the left ovary. There is normal blood flow to both ovaries on Doppler exam. No free fluid is seen. IMPRESSION: Single viable 6 week 1 day intrauterine without complication. Signer Name: Raul Wallace MD Signed: 04/27/2021 5:19 PM Workstation Name: [id number]
[2021-04-27 17:52] VITALS: BP 118/78
== END 2021-04-27 17:50 | disposition home or self-care (01) ==
LOC: ED 12:49
DX: O26.891 Other specified pregnancy related conditions, first trimester (principal); R10.9 Unspecified abdominal pain; I10 Essential (primary) hypertension
CPT/HCPCS: 36415; 76801; 76817; 80053; 81001; 84702; 85025; 99284

== ENCOUNTER 2021-11-05 10:33 | Outpatient (CLI) | payer OTHER ==
[2021-11-05 12:39] LABS: Bilirubin,Urine NEG (Negative); Blood,Urine LG (Negative); Color,Urine Red (Yellow); Urobilinogen,Urine < 2.0 mg/dL (<2.0)
[2021-11-05 12:40] LABS: Basophils % (Auto) 0.8 % (0.0-1.8); Eosinophils # (Auto) 0.1 K/mm3 (0.0-0.4); Eosinophils % (Auto) 1.4 % (0.0-4.3); Hematocrit 40.7 % (30.3-42.9); Lymphocytes # (Auto) 1.3 K/mm3 (1.2-5.4); Lymphocytes % (Auto) 29.8 % (13.4-35.0); Mean Corpuscular HGB Conc 32 % (30-34); Mean Corpuscular Volume 87 fl (79-97); Monocytes # (Auto) 0.4 K/mm3 (0.0-0.8); Monocytes % (Auto) 9.2 % (0.0-7.3); Platelet Count 362 K/mm3 (140-440); Red Blood Count 4.68 M/mm3 (3.65-5.03); Red Cell Distribution Width 13.6 % (13.2-15.2)
[2021-11-05 12:46] LABS: RBC,Urine > 182.0 /HPF (0.0-6.0)
[2021-11-05 13:17] LABS: Alanine Aminotransferase 22 units/L (7-56); Albumin 4.5 g/dL (3.9-5); BUN/Creatinine Ratio 14; Blood Urea Nitrogen 11 mg/dL (7-17); Calcium 9.5 mg/dL (8.4-10.2); Hemolysis Index 5
== END 2021-11-05 10:34 | disposition home or self-care (01) ==
LOC: LABHHL 10:33
PROVIDERS: ATTEND Internal Medicine
DX: I10 Essential (primary) hypertension (principal)
CPT/HCPCS: 36415; 80053; 81001; 85025